=== PATIENT | female | born 1950 | race African-American/Black ===

== ENCOUNTER 2017-06-30 15:24 | Emergency (ER) | payer MEDICARE, OTHER ==
[~2017-06-30] VITALS: Ht 157.5 cm; Wt 61.7 kg
[~2017-06-30 15:24] MED LIST: ACIPHEX20 MG PO; ADVIL200 M2 PO; ALBUTEROL17 G1 IH; AMOXICILLIN PO; ATARAX PO; AUGMENTIN PO; B COMPLEX/FOLIC1 TAB PO; B COMPLEX1 CA1 PO; CELEXA PO; CORICIDIN COLD1 TAB PO; FERROUS SULFATE PO; FERROUS SULFATE1 TAB PO; FLEXERIL PO; FLEXERIL10 M1 PO; FLEXERIL10 MG PO; HCTZ PO; HYDROCHLOROTHIA25 MG PO; KEFLEX500 MG PO; MEDROL DOSEPAK4 MG DOB; MEDROL DOSEPAK4 MG PO; MEDROL PO; PEN-VEE K PO; PEPCID AC20 M2 PO; PRED-G 1% EYE DR5 ML OP; PREDNISONE PO; PRILOSEC PO; PRILOSEC20 MG PO; PRISTIQ50 MG PO; PROTONIX PO; ROBITUSSIN A-C-S1 ML DOB; SIMVASTATIN10 MG PO; VICODIN 5/500 T1 TAB PO; VISTARIL PO; VIT B-12 PO; VITAMIN B-12500 MCG PO; VITAMIN C PO; ZITHROMAX PO; ZITHROMAX1 G/PKT PO; ZOCOR PO; ZOVIRAX800 MG PO
== END 2017-06-30 17:00 | disposition home or self-care (01) ==
LOC: CED 15:24 → CFTX 15:24
DX: G62.9 Polyneuropathy, unspecified (principal); Z76.0 Encounter for issue of repeat prescription; I10 Essential (primary) hypertension; F41.9 Anxiety disorder, unspecified; Z90.710 Acquired absence of both cervix and uterus; F17.200 Nicotine dependence, unspecified, uncomplicated
CPT/HCPCS: 99283